=== PATIENT | female | born 1995 | race Caucasian/White ===

== ENCOUNTER 2017-12-12 22:36 | Emergency (ER) | payer OTHER ==
[~2017-12-12] VITALS: Ht 165.1 cm; Wt 84.8 kg
[2017-12-12 22:46] VITALS: BP 143/87; Ht 165.1 cm; Wt 84.8 kg
== END 2017-12-12 23:50 | disposition left against medical advice (07) ==
LOC: ED 22:36
DX: Z53.21 Procedure and treatment not carried out due to patient leaving prior to being seen by health care provider (principal)

== ENCOUNTER 2018-01-26 13:35 | Emergency (ER) | payer OTHER ==
[~2018-01-26] VITALS: Ht 167.6 cm; Wt 84.4 kg
[2018-01-26 13:40] VITALS: BP 150/90; Ht 167.6 cm; Wt 84.4 kg
[2018-01-26 14:45] LABS: BASOPHIL % 0.3 % (0-2); PLATELET COUNT 309 x10^3mcL (130-400); RED CELL DISTRIBUTION WIDTH 13.4 % (11.5-14.5)
== END 2018-01-26 15:45 | disposition home or self-care (01) ==
LOC: ED 13:35
PROVIDERS: Emergency Medicine
DX: O26.891 Other specified pregnancy related conditions, first trimester (principal); R10.30 Lower abdominal pain, unspecified; Z3A.00 Weeks of gestation of pregnancy not specified
CPT/HCPCS: 36415

== ENCOUNTER 2018-01-28 15:14 | Emergency (ER) | payer OTHER ==
[~2018-01-28] VITALS: Ht 167.6 cm; Wt 84.4 kg
[2018-01-28 15:21] VITALS: BP 120/73
== END 2018-01-28 16:30 | disposition left against medical advice (07) ==
LOC: ED 15:14
DX: Z53.21 Procedure and treatment not carried out due to patient leaving prior to being seen by health care provider (principal)

== ENCOUNTER 2018-01-29 11:40 | Emergency (ER) | payer OTHER ==
[~2018-01-29] VITALS: Ht 165.1 cm; Wt 83.9 kg
[2018-01-29 11:48] VITALS: Ht 165.1 cm; Wt 83.9 kg
[2018-01-29 14:00] VITALS: BP 112/66
== END 2018-01-29 14:00 | disposition home or self-care (01) ==
LOC: ED 11:40
DX: O26.891 Other specified pregnancy related conditions, first trimester (principal); Z3A.01 Less than 8 weeks gestation of pregnancy
CPT/HCPCS: 36415

== ENCOUNTER 2020-02-26 12:30 | Emergency (ER) | payer OTHER ==
[~2020-02-26] VITALS: Ht 167.6 cm; Wt 88.9 kg
[2020-02-26 12:41] VITALS: Ht 167.6 cm; Wt 88.9 kg
[2020-02-26 14:09] LABS: BASOPHIL % 0.5 % (0-2); PLATELET COUNT 293 x10^3mcL (130-400); RED CELL DISTRIBUTION WIDTH 14.5 % (11.5-14.5)
[2020-02-26 15:46] VITALS: BP 98/57
== END 2020-02-26 15:46 | disposition home or self-care (01) ==
LOC: ED 12:30
PROVIDERS: Emergency Medicine
DX: O20.0 Threatened abortion (principal); Z3A.01 Less than 8 weeks gestation of pregnancy

== ENCOUNTER 2020-03-01 09:07 | Emergency (ER) | payer OTHER ==
[~2020-03-01] VITALS: Ht 167.6 cm; Wt 83.9 kg
[2020-03-01 09:10] VITALS: BP 113/75; Ht 167.6 cm; Wt 83.9 kg
== END 2020-03-01 11:30 | disposition home or self-care (01) ==
LOC: ED 09:07
DX: O26.891 Other specified pregnancy related conditions, first trimester (principal); R10.30 Lower abdominal pain, unspecified; R10.2 Pelvic and perineal pain; Z3A.08 8 weeks gestation of pregnancy
CPT/HCPCS: Q0092

== ENCOUNTER 2020-03-24 21:25 | Emergency (ER) | payer OTHER ==
[~2020-03-24] VITALS: Ht 167.6 cm; Wt 88.5 kg
[2020-03-24 21:37] VITALS: BP 127/67; Ht 167.6 cm; Wt 88.5 kg
== END 2020-03-24 23:10 | disposition home or self-care (01) ==
LOC: ED 21:25
DX: O26.891 Other specified pregnancy related conditions, first trimester (principal); L02.211 Cutaneous abscess of abdominal wall; Z3A.08 8 weeks gestation of pregnancy